=== PATIENT | female | born 1960 | race Asian ===

== ENCOUNTER 2023-10-28 16:42 | Emergency (ER) | payer BC, SELFPAY ==
[2023-10-28 17:11] VITALS: BP 135/81; PULSE 53; RESP 16; TEMP 36.6; O2SAT 97; BMI 19.1
--- NOTE | 2023-10-28 19:51 | CRLHL7_ITS ---
For Patients: As a result of the Century Cures Act, medical imaging exams and procedure reports are released immediately into your electronic medical record. You may view this report before your referring provider. If you have questions, please contact your health care provider. INDICATION: Chest pain. TECHNIQUE: Chest 2 view. Permanently recorded images are archived. COMPARISON: None. FINDINGS: Cardiovascular and mediastinum: Heart size and vasculature are normal in caliber and appearance. Lungs and pleural spaces: The lungs are clear. No pleural effusion or pneumothorax. Bones and soft tissues: Unremarkable for age. IMPRESSION: No evidence of an acute pulmonary process. Dictated by Jose Krause MD @ 10/28/2023 9:40:31 PM (Electronically Signed)
--- NOTE | 2023-10-28 20:09 | ED.GENADULT ---
HPI - General Adult General Date Seen: 10/28/23 Chief complaint: Chest Pain Stated complaint: Chest heavy/pain thru neck and shoulder Time Seen by Provider: 10/28/23 19:34 Source: patient, RN notes reviewed and ignition expert Mode of arrival: ambulatory Limitations: language barrier History of Present Illness HPI narrative: Patient is a 63-year-old woman who presents for evaluation of nightly chest pain. She speaks Mandarin, history is obtained with the assistance of an ignition expert. She says that a couple of weeks ago she developed constipation and was having to push very hard to have bowel movements. Constipation is improved and she does not have any abdominal pain, but she has developed chest pain which bothers her when she lays down at night. She says she works all day without any problems but when she lays down at night she has discomfort in her chest and both sides of her ribs that forces her to sit up to relieve the pain. She denies difficulty breathing, cough, fevers, nausea, vomiting. Appetite has been normal. No black or bloody stools. No prior history of GERD or ulcers. Only medication is for thyroid. She does not smoke or drink. Here today with her . Related Data Home Medications Medication Instructions Recorded Confirmed levothyroxine 75 mcg tablet 75 mcg PO DAILY 11/20/22 10/28/23 Previous Rx's Medication Instructions Recorded omeprazole 40 mg capsule,delayed 40 mg PO DAILY #14 caps 10/28/23 release Allergies Allergy/AdvReac Type Severity Reaction Status Date / Time Sulfa (Sulfonamide Allergy Unknown Verified 10/28/23 17:23 Antibiotics) Review of Systems Status of ROS: Reports: 10 or more systems reviewed and unremarkable except as noted in History and below [facility] Social History Smoking Status: Never smoker Exam Narrative: Exam Narrative: Vital signs as noted above. In general, an alert, well-appearing patient. Head: Normocephalic, atraumatic. Eyes: Pupils are equal reactive. Extraocular movements are full. Conjunctivae are normal. ENT: Mucous membranes are moist. Throat is normal. Neck: Supple without lymphadenopathy. Heart: Regular rate and rhythm. No murmur or rub. Lungs: Clear bilaterally. No increased work of breathing, crackles or wheezes. Abdomen: Soft and nontender. No organomegaly. Extremities: Well perfused. No edema. No calf tenderness. Pulses intact. Neurologic: Patient is alert and oriented to person and place. Speech is fluent. Face is symmetric. Moves all extremities equally. Affect: Normal. Skin: Warm and dry. Well perfused. Const: Vital Signs, click to edit/add: Vital Signs - 24 hr 10/28/23 17:11 Temperature 97.8 F Pulse Rate [Right Pulse Oximeter] 53 L Respiratory Rate 16 Blood Pressure [Ri ght Upper Arm] 135/81 Pulse Oximetry 97 Oxygen Delivery Me thod Room Air Documenting provider has reviewed patient's vital signs: yes Course Course ED Course: EKG done on patient's arrival by my review shows sinus bradycardia, ventricular rate of 52 beats per minute. No acute ST segment changes, T-waves unremarkable, and all intervals. Will go ahead and check a chest x-ray, troponin, CBC, liver panel and electrolytes. Diagnostic considerations include angina, pericarditis, gastroesophageal reflux/gastritis, biliary colic, pancreatitis, chest wall pain among others. She has no abdominal pain or tenderness, I think an abdominal cause aside from gastroesophageal reflux is relatively unlikely but will go ahead and check labs. Doubt angina given the non exertional nature of her symptoms and reproducibility laying down. EKG is not concerning. No obvious risk factors aside from age. Patient's labs are reassuring, white blood cell count is slightly low at 3.4, hemoglobin is normal as are platelets. Metabolic panel unremarkable, blood sugar 111, AST is 37 ALT is 37, alk-phos and bilirubin are normal. CRP is less than 0.5. Lipase is 190 and troponin is less than 0.01. I think it is most reasonable to try treating her for gastroesophageal reflux, have her follow up with primary care in a week or 2 for recheck. If at any time she has acute worsening, severe symptoms return for re-evaluation. Vital Signs Vital signs: Initial Vital Signs Temperature 97.8 F 10/28/23 17:11 Temperature Source Temporal Artery Scan 10/28/23 17:11 Pulse Rate 53 L 10/28/23 17:11 Respiratory Rate 16 10/28/23 17:11 Blood Pressure 135/81 10/28/23 17:11 Blood Pressure Mean 99 10/28/23 17:11 Blood Pressure Position Sitting 10/28/23 17:11 Pulse Oximetry 97 10/28/23 17:11 Oxygen Delivery Method Room Air 10/28/23 17:11 Vital Signs Temperature 97.8 F 10/28/23 17:11 Pulse Rate 53 L 10/28/23 17:11 Respiratory Rate 16 10/28/23 17:11 Blood Pressure 135/81 10/28/23 17:11 Pulse Oximetry 97 10/28/23 17:11 Oxygen Delivery Method Room Air 10/28/23 17:11 Temperature 97.8 F 10/28/23 17:11 Pulse Rate 53 L 10/28/23 17:11 Respiratory Rate 16 10/28/23 17:11 Blood Pressure 135/81 10/28/23 17:11 Pulse Oximetry 97 10/28/23 17:11 Oxygen Delivery Method Room Air 10/28/23 17:11 Medical Decision Making Lab Data Labs: Lab Results 10/28/23 10/28/23 Range/Units 20:05 20:05 WBC 3.40 L (4.50-11.00) K/uL RBC 4.21 (4.00-5.20) m/uL Hgb 12.9 (12.0-16.0) gm/dL Hct 39.4 (33.0-51.0) % MCV 94 (80-100) fL MCH 31 (26-34) pg MCHC 33 (32-36) gm/dL RDW Coeff of Ignacio 13.9 (11.5-15.5) % Plt Count 189 (140-440) K/uL Neut % (Auto) 48.4 (42.0-72.0) % Lymph % (Auto) 42.4 (20-44) % [place] % (Auto) 7.4 (0.0-11.0) % Eos % (Auto) 1.2 (0.0-7.0) % Baso % (Auto) 0.3 (0.0-3.0) % Neut # (Auto) 1.60 L (1.7-7.0) K/uL Lymph # (Auto) 1.40 (0.90-2.90) K/uL [place] # (Auto) 0.30 (0.00-0.90) K/UL Eos # (Auto) 0.00 (0.00-0.50) K/uL Baso # (Auto) 0.00 (0.00-0.30) K/uL Abs Immat Gran (auto) 0.00 (0.00-0.30) K/uL Imm/Tot Granulo (auto) 0.3 % Sodium 138 (135-149) mmol/L Potassium 3.4 L (3.6-5.1) mmol/L Chloride 106 (96-114) mmol/L Carbon Dioxide 28 (20-32) mmol/L Anion Gap 4 L (7-15) mEq/L BUN 18 (7-30) mg/dL Creatinine 0.6 (0.5-1.5) mg/dL Estimated Creat Clear 46.80 Estimated GFR 100 ml/min Glucose 111 (60-115) mg/dL Calcium 9.0 (8.4-10.6) mg/dL Total Bilirubin 0.9 (0.1-1.5) mg/dL Direct Bilirubin 0.0 (0.0-0.5) mg/dL AST 37 H (12-35) U/L ALT 37 H (4-35) U/L Alkaline Phosphatase 65 (40-150) U/L Troponin I < 0.01 L Cancelled (0.01-0.04) ng/mL C-Reactive Protein < 0.5 L (0.5-1.0) mg/dL Total Protein 6.7 (6.0-8.3) g/dL Albumin 4.0 (3.3-5.0) g/dL Lipase 190 (23-300) U/L Discharge Plan Discharge Clinical Impression: Chest pain Patient Disposition: Home, Self-Care Condition: Stable Instructions: Chest Pain (DC) Additional Instructions: Your labs and x-ray are all normal tonight, including a troponin, which we used to screen for any damage to the heart muscle as in a heart attack. I would recommend that we start you on omeprazole to treat for possible gastroesophageal reflux. Follow-up with your primary doctor in the next 1-2 weeks for recheck. Return to the ER at any time for worsening. Prescriptions: New omeprazole 40 mg capsule,delayed release(DR/EC) 40 mg PO DAILY Qty: 14 2RF No Action levothyroxine 75 mcg tablet 75 mcg PO DAILY Follow Up/Referrals: Luis Alfred MD [Primary Care Provider] - Stand Alone Forms: [employer] Info Instructions
[2023-10-28 20:22] LABS: Basophils Percent Auto 0.3 % (0.0-3.0); Eosinophils Percent Auto 1.2 % (0.0-7.0); Hematocrit 39.4 % (33.0-51.0); Hemoglobin* 12.9 gm/dL (12.0-16.0); Immature Granulocytes Pct Auto 0.3 %; Lymphocytes Percent Auto 42.4 % (20-44); Mean Corpuscular HGB Conc 33 gm/dL (32-36); Mean Corpuscular Hemoglobin 31 pg (26-34); Mean Corpuscular Volume 94 fL (80-100); Monocytes Percent Auto 7.4 % (0.0-11.0); Neutrophils Percent Auto 48.4 % (42.0-72.0); Platelet Count* 189 K/uL (140-440); RDW Coefficient of Variation % 13.9 % (11.5-15.5); Red Blood Count 4.21 m/uL (4.00-5.20)
[2023-10-28 20:40] LABS: Chloride* 106 mmol/L (96-114)
[2023-10-28 20:41] LABS: Sodium* 138 mmol/L (135-149)
[2023-10-28 20:43] LABS: Creatinine* 0.6 mg/dL (0.5-1.5); Estimated Glomerular Filt Rate 100 ml/min
[2023-10-28 20:44] LABS: Alkaline Phosphatase* 65 U/L (40-150); Anion Gap 4 mEq/L (7-15); Aspartate Amino Transferase* 37 U/L (12-35); Bilirubin Total* 0.9 mg/dL (0.1-1.5); Blood Urea Nitrogen* 18 mg/dL (7-30); Carbon Dioxide* 28 mmol/L (20-32); Lipase* 190 U/L (23-300); Potassium* 3.4 mmol/L (3.6-5.1); Total Protein* 6.7 g/dL (6.0-8.3)
[2023-10-28 20:45] LABS: Alanine Aminotransferase* 37 U/L (4-35); Glucose* 111 mg/dL (60-115)
[2023-10-28 20:47] LABS: Slide Review Reflex No
[2023-10-28 20:51] LABS: C Reactive Protein* < 0.5 mg/dL (0.5-1.0)
[2023-10-28 20:55] LABS: Troponin I* < 0.01 ng/mL (0.01-0.04)
== END 2023-10-28 21:25 | disposition home or self-care (01) ==
PROVIDERS: Emergency Provider Emergency Medicine; PCP Family Medicine
DX: R07.9 Chest pain, unspecified (principal)
CPT/HCPCS: 36415; 71046; 80048; 80076; 83690; 84484; 85025; 86140; 93005; 99284; 99285